=== PATIENT | female | born 1955 | race Caucasian/White ===

== ENCOUNTER 2022-04-14 11:17 | Outpatient (CLI) | payer OTHER, SELFPAY ==
[2022-04-14 21:15] LABS: Albumin* 4.2 g/dL (3.3-5.0); Chloride* 103 mmol/L (96-114)
[2022-04-14 21:16] LABS: Potassium* 4.6 mmol/L (3.6-5.1); Sodium* 138 mmol/L (135-149)
[2022-04-14 21:18] LABS: Alkaline Phosphatase* 85 U/L (40-150); Aspartate Amino Transferase* 24 U/L (12-35); Bilirubin Total* 0.8 mg/dL (0.1-1.5); Blood Urea Nitrogen* 16 mg/dL (7-30); Carbon Dioxide* 28 mmol/L (20-32); Cholesterol* 175 mg/dL (90-199); Creatinine* 0.8 mg/dL (0.5-1.5); Estimated Glomerular Filt Rate 81 ml/min; Glucose* 98 mg/dL (60-115); Triglycerides* 110 mg/dL (40-149)
[2022-04-14 21:19] LABS: Alanine Aminotransferase* 16 U/L (4-35); Calcium* 9.7 mg/dL (8.4-10.6); HDL Cholesterol* 45 mg/dL (>=50); LDL Cholesterol Calculated 108 mg/dL (<100)
== END 2022-04-14 11:18 | disposition home or self-care (01) ==
PROVIDERS: PCP Family Medicine; Visit Provider Family Medicine
DX: M25.50 Pain in unspecified joint (principal); R03.0 Elevated blood-pressure reading, without diagnosis of hypertension; E66.01 Morbid (severe) obesity due to excess calories; Z13.1 Encounter for screening for diabetes mellitus; Z13.6 Encounter for screening for cardiovascular disorders
CPT/HCPCS: 80053; 80061

== ENCOUNTER 2022-12-18 15:49 | Emergency (ER) | payer OTHER, SELFPAY ==
[2022-12-18 15:57] VITALS: BP 180/90; PULSE 72; RESP 18; TEMP 36.6; O2SAT 97; BMI 36.3
--- NOTE | 2022-12-18 17:21 | ED_ITS ---
HPI - General Adult General Chief complaint: Skin/Abscess/Foreign Body Stated complaint: Swelling in the neck Time Seen by Provider: 12/18/22 17:08 History of Present Illness HPI narrative: left sided neck swelling that started last night. worse today. lower molar problems. denies pain or breathing problems 67-year-old woman presenting to the emergency department with concern of swelling at the left lower jaw. Not really painful. She was icing it somewhat yesterday and seemed to go down a little bit yesterday and now swelled again. There has not been any inflammation. No drainage. No fever. No known trauma. Never happened to have something like this before. Related Data Home Medications Medication Instructions Recorded Confirmed acetaminophen 500 mg tablet 500 - 1,000 mg PO Q6H PRN 04/13/22 04/13/22 aspirin 81 mg tablet,delayed 81 mg PO BID 04/13/22 04/13/22 release cetirizine 10 mg tablet 10 mg PO DAILY 04/13/22 12/18/22 Previous Rx's Medication Instructions Recorded naproxen 375 mg tablet 375 mg PO BID PRN pain #180 tabs 10/21/22 Allergies Allergy/AdvReac Type Severity Reaction Status Date / Time amoxicillin Allergy Unknown Verified 04/14/22 10:48 Clavulanate Allergy Intermediate GI, Uncoded 04/14/22 10:48 diarrhea Review of Systems Status of ROS: Reports: 6 or more systems reviewed and unremarkable except as noted in History and below [facility] Surgical History 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) ?Z96.649 - Presence of unspecified artificial hip joint (ICD-10) Status post bilateral breast reduction (03/27/12) ?Z98.890 - Other specified postprocedural states (ICD-10) History of total right hip replacement ?Z96.641 - Presence of right artificial hip joint (ICD-10) Family History Father Diabetes Daughter Coronary artery disease Social History Narrative: Retired from employment- retired in 2009 Nonsmoker Does not use illicit drugs Does not drink alcohol Smoking Status: Never smoker Exam Narrative: Exam Narrative: Firm nontender generalized swelling anterior to the left ear extending over the jaw and underneath. Oropharyngeal exam with mucosal tag sorts in the area where I would expect the parotid duct stoma to be. There is some disrupted filling on the posterior molars of the left lower jaw but I do not appreciate swelling in the area I do not think that this is related. This mass is not pulsatile. Again no induration or erythema or calor. She is pleasant. Speaking easily. No difficulty breathing. TMs are clear. Pain is not really in the TMJ. Const: Vital Signs, click to edit/add: Vital Signs - 24 hr 12/18/22 15:57 Temperature 97.8 F Pulse Rate [Right Pulse Oximeter] 72 Respiratory Rate 18 Blood Pressure [Ri ght Upper Arm] 180/90 H Pulse Oximetry 97 Oxygen Delivery Me thod Room Air Documenting provider has reviewed patient's vital signs: yes Course Vital Signs Vital signs: Initial Vital Signs Temperature 97.8 F 12/18/22 15:57 Temperature Source Temporal Artery Scan 12/18/22 15:57 Pulse Rate 72 12/18/22 15:57 Respiratory Rate 18 12/18/22 15:57 Blood Pressure 180/90 H 12/18/22 15:57 Blood Pressure Mean 120 H 12/18/22 15:57 Blood Pressure Position Sitting 12/18/22 15:57 Pulse Oximetry 97 12/18/22 15:57 Oxygen Delivery Method Room Air 12/18/22 15:57 Vital Signs Temperature 97.8 F 12/18/22 15:57 Pulse Rate 72 12/18/22 15:57 Respiratory Rate 18 12/18/22 15:57 Blood Pressure 180/90 H 12/18/22 15:57 Pulse Oximetry 97 12/18/22 15:57 Oxygen Delivery Method Room Air 12/18/22 15:57 Temperature 97.8 F 12/18/22 15:57 Pulse Rate 72 12/18/22 15:57 Respiratory Rate 18 12/18/22 15:57 Blood Pressure 180/90 H 12/18/22 15:57 Pulse Oximetry 97 12/18/22 15:57 Oxygen Delivery Method Room Air 12/18/22 15:57 Medical Decision Making MDM Narrative Medical decision making narrative: The area of swelling appears quite consistent with parotid gland. Does not appear to be vascular in nature. Is not particularly tender. She does not have cellulitic change. I do not think laboratory analysis or other evaluation is n ecessary at this time. I think prudent at this point to help mobilize fluid with massage in maybe sialagogues. See patient discharge plan. Discharge Plan Discharge Clinical Impression: Acute parotitis Patient Disposition: Home, Self-Care Condition: Stable Additional Instructions: Can do gentle massage from back to front. Apply warm moist packs few times daily. Can use cold to if it makes it feel better. Can take ibuprofen. Would consider sucking on sialagogues like really potent lemon drops or other sours to stimulate secretion from this parotid gland. It is possible that 1 of these ducts is plugged, may even have a calcifications/stone within. I do not see that at this time. Stay well-hydrated. Be seen for marked increase in swelling, redness, heat, pain, fever. Likely an indication for antibiotics. Prescriptions: No Action cetirizine 10 mg tablet 10 mg PO DAILY acetaminophen 500 mg tablet 500 - 1,000 mg PO Q6H PRN aspirin 81 mg tablet,delayed release (DR/EC) 81 mg PO BID Rx Instructions: For deep vein clot prevention post-surgery. Start this medication after completing Rivaroxaban. Take twice daily. naproxen 375 mg tablet 375 mg PO BID PRN (Reason: pain) Qty: 180 3RF Follow Up/Referrals: Cl Beatty MD [Referring] - Stand Alone Forms: [facility] Info Instructions
== END 2022-12-18 17:50 | disposition home or self-care (01) ==
LOC: ED 17:49
PROVIDERS: Emergency Provider Family Medicine; PCP Family Medicine
DX: K11.21 Acute sialoadenitis (principal)
CPT/HCPCS: 99283; 99284

== ENCOUNTER 2023-07-13 10:10 | Outpatient (CLI) | payer MEDICARE, SELFPAY | END 2023-07-13 10:11 | disposition home or self-care (01) | PROVIDERS: PCP Family Medicine; Visit Provider Family Medicine | DX: Z00.00 Encounter for general adult medical examination without abnormal findings (principal); G89.29 Other chronic pain; Z13.6 Encounter for screening for cardiovascular disorders | CPT/HCPCS: 80053; 80061 ==